=== PATIENT | female | born 1945 | race Caucasian/White ===

== ENCOUNTER → 2019-12-04 | Day surgery (SDC) | payer MEDICARE, BC ==
[~2019-12-04] MED LIST: Barium Sulfate 105% w/v Susp 1,900 ML Bottle RECTAL ONE; Dexamethasone 4 MG/ML SDV ONE; Dextrose 5%-Lactated Ringers 1,000 ML IV SCH; Glycopyrrolate 0.2 MG/ML 5 ML MDV ONE; Midazolam 1 MG/ML 2 ML SDV ONE; Neostigmine Methylsulfate 1 MG/ML 5 ML Syringe ONE; Ondansetron 4 MG/2 ML SDV IVPUSH ONE; Ondansetron 4 MG/2 ML SDV ONE; Pantoprazole 40 MG Vial IVPUSH ONE; Propofol 200 MG/20 ML SDV ONE; Rocuronium 50 MG/5 ML Vial ONE; Succinylcholine 200 MG/10 ML MDV ONE; fentaNYL 100 MCG/2 ML SDV ONE; fentaNYL 250 MCG/5 ML SDV ONE
--- NOTE | 2019-12-04 11:46 | CR ---
Barium Enema Comp CLINICAL HISTORY: Incomplete colonoscopy FINDINGS: Preliminary film of the abdomen shows diffuse gaseous distention of colon from incomplete colonoscopy. Barium flowed freely from the rectum to the cecum. There are no abnormal masses in the colon. No obstructing lesions are seen. There is reflux into the terminal ileum. There are a few scattered diverticula in the descending colon. There is mild to moderate diverticulosis in the sigmoid colon. IMPRESSION: Diverticulosis without evidence of diverticulitis No persistent filling defects or annular constricting lesions
--- NOTE | 2019-12-13 13:24 | OR ---
DATE OF PROCEDURE: 12/04/2019 SURGEON: Jacky Hensley MD PREOPERATIVE DIAGNOSES: 1. History of throat irritation and intermittent heartburn. 2. Indication for screening colonoscopy. POSTOPERATIVE DIAGNOSES: 1. History of throat irritation and occasional heartburn associated with: a. 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 b. Antral gastritis and duodenitis with erosions in the prepyloric area. c. Reddened and slightly edematous hypopharynx and larynx consistent with gastroesophageal reflux disease. 2. Extensive sigmoid colon diverticulosis with fixed angulation of the mid sigmoid colon preventing more proximal progression of the endoscopy. OPERATIVE PROCEDURES: 1. Esophagogastroduodenoscopy with: a. Biopsy of esophagogastric junction for histologic evaluation. b. Biopsies of antrum for CLOtest. 2. Flexible sigmoidoscopy. ANESTHESIA: IV sedation. INDICATION FOR PROCEDURE: The patient presents with a history of some severe irritation in the throat area along with intermittent heartburn, but presently has not any antisecretory medication. She will undergo an upper endoscopy for evaluation of those symptoms. The patient complains of some dysphagia referable primarily to the laryngopharyngeal area and occasionally into the retrosternal area. Otherwise, the patient to undergo a screening colonoscopy. Potential risks of the procedure including bleeding and perforation were discussed, and the patient wishes to proceed. DETAILS OF PROCEDURE: The patient was taken to the operating room and placed in a left lateral decubitus position. IV sedation was administered, after which the upper GI endoscope was passed orally through the length of the esophagus and into the stomach with retroflexion view of the fundus, and thereafter through the pyloric channel, then into the junction of the third and fourth portions of the duodenum. Findings included some mildly reddened and edematous hypopharynx and larynx. The upper esophageal sphincter, esophageal body were unremarkable. At the EG junction, the patient was noted to have a quite large hiatal hernia measuring 5 to 6 cm. This contained some ulcerative esophagitis with some ulcers extending upward into the esophageal mucosa in a linear configuration. No bleeding was noted or stricturing. 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 The remainder of the stomach was notable for some patchy redness as well as some erosions in the prepyloric area as well as some duodenitis and duodenal bulb up and down which the duodenal findings normalized. At this point, biopsies were obtained from the antrum and sent for CLOtest for H. pylori. Multiple biopsies were obtained from the ulcerated areas as well as the generalized upward extension of the columnar mucosa and sent for histologic evaluation. Minimal bleeding from the biopsy sites was seen and the procedure then concluded. The patient was then to undergo a colonoscopy. Initial digital rectal exam was performed and was unremarkable. The colonoscope was then passed into the rectum with retroflexion revealing uncomplicated hemorrhoidal columns. The scope was then eventually passed to the level of the 35 cm yaima, beyond which it could not be passed further, appeared to be acute angulation of that. To that level, the patient was noted to have a quite extensive, but otherwise uncomplicated diverticulosis. Due to the fixed angulation, it could eventually not be traversed and we decided at that point to back down and complete the colon examination with a barium enema later this morning. The scope was then withdrawn and the procedure then concluded. The patient was taken to the recovery room in satisfactory condition. Subsequent barium enema showed a redundant sigmoid colon. Otherwise, there was no evidence of polyps or other signs of neoplasia or other complications. Given this, a repeat colon examination should be at the primary care provider's discretion. The patient for the reflux will be given Protonix 40 mg IV in the recovery room and then started on Protonix 40 mg daily. We will see the patient back in 3 weeks to follow up on the reflux symptoms and decide on ongoing treatment at that point. Jacky Hensley MD /[id number]
== END ==
LOC: JP.SDS 05:26
PROVIDERS: ATTEND Surgery
DX: Z12.11 Encounter for screening for malignant neoplasm of colon (principal); K57.30 Diverticulosis of large intestine without perforation or abscess without bleeding; K64.9 Unspecified hemorrhoids; K44.9 Diaphragmatic hernia without obstruction or gangrene; K21.0 Gastro-esophageal reflux disease with esophagitis; K29.90 Gastroduodenitis, unspecified, without bleeding; K25.9 Gastric ulcer, unspecified as acute or chronic, without hemorrhage or perforation; K22.10 Ulcer of esophagus without bleeding; Z88.2 Allergy status to sulfonamides; Z88.1 Allergy status to other antibiotic agents
CPT/HCPCS: 43239; 74270; 87081; 88305; 88312; C9113; G0104; J2250; J2405; J2704; J3010; J7121; J0330; J1100; J1790; J2710; J3490